=== PATIENT | male | born 1945 | race Caucasian/White ===

== ENCOUNTER 2017-06-11 12:50 | Emergency (ER) | payer OTHER ==
[~2017-06-11 12:50] MED LIST: AMLO10 PO; ASPI81 PO; HYDR50TA5 PO; POTA-243 PO; SERT100 PO; TAMS0.4C67 PO; [UNRECOGNIZED DRUG - CODE] XX
[2017-06-11 12:53] VITALS: BP 134/84; PULSE 88; RESP 20; TEMP 97.9; O2SAT 97
--- NOTE | 2017-06-11 13:11 | PD ---
Physical Exam Time Seen by Provider: 13:09 Narrative 72 y/o male here with dizziness, nausea for one week. Vital signs reviewed. Seen at triage desk. Awaiting bed placement. Data Data Last Documented VS Vital Signs Date Time Temp Pulse Resp B/P Pulse Ox O2 Delivery O2 Flow Rate FiO2 06/11/17 12:53 97.9 88 20 134/84 97 Room Air [facility] Medical Record Reviewed: Yes Supervised Visit with BHAVESH: No Jaime Vera Jun 11, 2017 13:11
[2017-06-11] MEDS ORDERED: B-122000 PO (16:01)
[2017-06-11] MEDS ORDERED: LOSA50TA PO (16:01)
[2017-06-11] MEDS ORDERED: AMLO10TA2 PO (16:01)
[2017-06-11] MEDS ORDERED: WARF-23 PO (16:01)
[2017-06-11] MEDS ORDERED: POTA10TA2 PO (16:01)
[2017-06-11] MEDS ORDERED: TERA1CAP3 PO (16:01)
[2017-06-11] MEDS ORDERED: CYAN100025 SL (16:01)
[2017-06-11] MEDS ORDERED: DOCU100C PO (16:01)
[2017-06-11] MEDS ORDERED: ASPI325T PO (16:01)
[2017-06-11] MEDS ORDERED: ATOR1TAB18 PO (16:01)
[2017-06-11] MEDS ORDERED: AMIO200T PO (16:01)
[2017-06-11] MEDS ORDERED: B-12100T PO (16:01)
--- NOTE | 2017-06-11 16:06 | PD ---
HPI Chief Complaint: Medical Clearance Time Seen by Provider: 16:06 Travel History International Travel<30 days: No Contact w/Intl Traveler<30days: No Traveled to known affect area: No History of Present Illness HPI 72-year-old male with a history of hypertension, atrial fibrillation anticoagulated on warfarin presents to the emergency department for evaluation of headache and abdominal pain for 3 months. The patient states that every morning after he takes his medications he begins to have a headache on the top of his head and has periumbilical abdominal pain. States that when he wakes up in the morning he doesn't have these symptoms, they began after he takes his medication. States that the headache is described as a pressure. States that it persists throughout the day and waxes and wanes in severity. States that he also has mild abdominal discomfort throughout the day that is alleviated with eating. At that by the time his headache and abdominal pain starts to feel better is time for his evening meds and his symptoms return. States that when he goes to sleep these symptoms do not wake him up, he is able to sleep without difficulty. He denies any lightheadedness, dizziness, nausea, vomiting, diarrhea, fever, chills, vision changes, numbness or tingling, weakness. PCP is at [facility]. No other complaints. PFSH Past Medical History Arthritis: Yes (UNDER CONTROL) Anxiety: Yes Depression: No Heart Rhythm Problems: Yes (BRADYCARDIA) Cancer: No Cardiovascular Problems: Yes High Cholesterol: No Chest Pain: No Congestive Heart Failure: No Diabetes: No Endocrine: No Gastrointestinal Disorders: Yes GERD: No Genitourinary: Yes Hiatal Hernia: Yes Hypertension: Yes Immune Disorder: No Kidney Stones: No Musculoskeletal: Yes Neurologic: No Psychiatric: Yes (PTSD) Reproductive: No Respiratory: No Renal Failure: No Ulcer: No Tetanus Vaccination: > 5 Years Influenza Vaccination: Yes Past Surgical History Abdominal Surgery: Yes (CHOLECYSTECTOMY) Cardiac Surgery: No Cholecystectomy: Yes Ear Surgery: No Endocrine Surgery: No Eye Surgery: No Genitourinary Surgery: No Gynecologic Surgery: No Oral Surgery: Yes (TOOTH REMOVAL) Thoracic Surgery: No Tonsillectomy: Yes Other Surgery: Yes Social History Alcohol Use: Yes (ONCE A MONTH) Tobacco Use: No (QUIT 10 YRS AGO.) Substance Use: No Allergies-Medications (Allergen,Severity, Reaction): Coded Allergies: No Known Allergies (Verified , 06/11/17) Reported Meds & Prescriptions Reported Meds & Active Scripts Active Reported B-12 (Cyanocobalamin) 2,000 Mcg Tab 1,000 Mcg PO DAILY Warfarin 5 Mg Tab 5 Mg PO DAILY Terazosin (Terazosin HCl) 1 Mg Cap 1 Mg PO HS Potassium Chloride ER (Potassium Chloride) 10 Meq Tab 10 Meq PO BID Losartan (Losartan Potassium) 50 Mg Tab 50 Mg PO DAILY Docusate Sodium 100 Mg Cap 100 Mg PO BID Atorvastatin (Atorvastatin Calcium) 80 Mg Tab 80 Mg PO HS Aspirin 325 Mg Tab 325 Mg PO DAILY Amlodipine (Amlodipine Besylate) 10 Mg Tab 10 Mg PO DAILY Amiodarone (Amiodarone HCl) 200 Mg Tab 200 Mg PO DAILY Review of Systems Except as stated in HPI: all other systems reviewed are Neg Physical Exam Narrative GENERAL: Well-nourished and well-developed pleasant male patient in no acute distress who is nontoxic appearing. SKIN: Warm and dry. HEAD: Normocephalic and atraumatic. EYES: No injection, drainage, or hyphema noted. PERRLA. EOMI. ENT: No nasal drainage noted. Oropharynx is clear. NECK: Supple and the trachea is midline. CARDIOVASCULAR: Regular rate and rhythm. RESPIRATORY: Breath sounds are equal bilaterally with no accessory muscle use, wheezing, rhonchi, or crackles. GASTROINTESTINAL: Abdomen is soft, non-tender, and nondistended. No rebound tenderness or guarding. MUSCULOSKELETAL: No obvious deformities, swelling, cyanosis, or ecchymosis is present throughout the upper and lower extremities. Patient has full range of motion without any signs of neurovascular compromise. Strength 5/5 upper and lower extremities and equal bilaterally. NEUROLOGICAL: Awake, alert, and oriented. Normal speech and gait. Cranial nerves are grossly intact. Data Data Last Documented VS Vital Signs Date Time Temp Pulse Resp B/P Pulse Ox O2 Delivery O2 Flow Rate FiO2 06/11/17 15:55 80 18 06/11/17 12:53 97.9 134/[address] Brain W/O Iv Contrast(Rout) (06/11/17 16:05) Complete Blood Count With Diff (06/11/17 16:05) Comprehensive Metabolic Panel (06/11/17 16:05) Lipase (06/11/17 16:05) Prothrombin Time / Inr (Pt) (06/11/17 16:05) Act Partial Throm Time (Ptt) (06/11/17 16:05) Urinalysis - C+S If Indicated (06/11/17 16:05) Iv Access Insert/Monitor (06/11/17 16:05) Ecg Monitoring (06/11/17 16:05) Oximetry (06/11/17 16:05) Labs Laboratory Tests Test 06/11/17 06/11/17 16:11 17:30 White Blood Count 9.6 TH/MM3 Red Blood Count 4.43 MIL/MM3 Hemoglobin 13.3 GM/DL Hematocrit 39.2 % Mean Corpuscular Volume 88.6 FL Mean Corpuscular Hemoglobin 30.1 PG Mean Corpuscular Hemoglobin 33.9 % Concent Red Cell Distribution Width 17.5 % Platelet Count 337 TH/MM3 Mean Platelet Volume 7.7 FL Neutrophils (%) (Auto) 82.8 % Lymphocytes (%) (Auto) 10.6 % Monocytes (%) (Auto) 6.2 % Eosinophils (%) (Auto) 0.1 % Basophils (%) (Auto) 0.3 % Neutrophils # (Auto) 8.0 TH/MM3 Lymphocytes # (Auto) 1.0 TH/MM3 Monocytes # (Auto) 0.6 TH/MM3 Eosinophils # (Auto) 0.0 TH/MM3 Basophils # (Auto) 0.0 TH/MM3 CBC Comment DIFF FINAL Differential Comment Prothrombin Time 18.5 SEC Prothromb Time International 1.6 RATIO Ratio Activated Partial 29.4 SEC Thromboplast Time Sodium Level 140 MEQ/L Potassium Level 4.0 MEQ/L Chloride Level 104 MEQ/L Carbon Dioxide Level 27.3 MEQ/L Anion Gap 9 MEQ/L Blood Urea Nitrogen 10 MG/DL Creatinine 0.99 MG/DL Estimat Glomerular Filtration 75 ML/MIN Rate Random Glucose 98 MG/DL Calcium Level 9.0 MG/DL Total Bilirubin 0.9 MG/DL Aspartate Amino Transf 10 U/L (AST/SGOT) Alanine Aminotransferase 15 U/L (ALT/SGPT) Alkaline Phosphatase 82 U/L Total Protein 8.5 GM/DL Albumin 3.3 GM/DL Lipase 75 U/L Urine Color YELLOW Urine Turbidity CLEAR Urine pH 6.5 Urine Specific [place] 1.020 Urine Protein TRACE mg/dL Urine Glucose (UA) NEG mg/dL Urine Ketones NEG mg/dL Urine Occult Blood NEG Urine Nitrite NEG Urine Bilirubin NEG Urine Urobilinogen 2.0 MG/DL Urine Leukocyte Esterase NEG Urine RBC 1 /hpf Urine WBC 2 /hpf Urine Mucus MOD /lpf Microscopic Urinalysis Comment CULT NOT INDICATED MDM Medical Decision Making Medical Screen Exam Complete: Yes Emergency Medical Condition: Yes Differential Diagnosis Mild persistent headache versus tension headache versus adverse reaction of medication versus gastritis Narrative Course 72-year-old male presents to the emergency department for evaluation of headache and abdominal pain daily for the past 3 months. Patient is afebrile, vital signs are stable. Physical examination is essentially unremarkable. Abdominal examination is benign. No focal neurologic deficits. Patient states that he thinks his headache and abdominal pain is secondary to taking his medications. Because he is anticoagulated on warfarin we will do a head CT to rule out any sort of intracranial hemorrhage. We'll do lab work to rule out any acute abnormalities. If these are unremarkable the patient will need a follow-up as an outpatient with his primary care. CBC is unremarkable. CMP is unremarkable. INR is subtherapeutic at 1.6. Urinalysis shows moderate mucus. Head CT is negative for any acute abnormalities. Discussed all results with the patient. His headache may be a side effect of some of the medications he is taking, specifically the amiodarone. There is no acute abnormality or finding on lab or imaging. He is advised to follow up as an outpatient with the [facility]. Diagnosis Primary Impression: Headache Qualified Code: G44.52 - New daily persistent headache Additional Impression: Abdominal pain Qualified Code: R10.9 - Abdominal pain, unspecified location Referrals: Primary Care Physician Patient Instructions: General Headache (ED), General Instructions Additional Instructions: Take [id number] tylenol as directed on the box as needed for pain. Follow-up with your Primary Care Physician. Return to the ED for any acute worsening of symptoms. Med/Other Pt SpecificInfo: No Change to Meds Disposition: 01 DISCHARGE HOME Condition: Stable Yara Ma Jun 11, 2017 16:06
[2017-06-11 16:34] LABS: BASOPHIL % 0.3 % (0.0-2.0); EOSINOPHIL % 0.1 % (0.0-4.0); HEMATOCRIT 39.2 % (39.0-51.0); HEMO FLAGS DIFF FINAL; LYMPH % 10.6 % (9.0-44.0); MEAN CELL VOLUME 88.6 FL (80.0-100.0); MEAN CORPUSCULAR HEMOGLOBIN 30.1 PG (27.0-34.0); MEAN CORPUSCULAR HGB CONC 33.9 % (32.0-36.0); MONO % 6.2 % (0.0-8.0); NEUT % 82.8 % (16.0-70.0); PLATELET COUNT 337 TH/MM3 (150-450); RED BLOOD COUNT 4.43 MIL/MM3 (4.50-5.90); RED CELL DISTRIBUTION WIDTH 17.5 % (11.6-17.2); WHITE BLOOD COUNT 9.6 TH/MM3 (4.0-11.0)
[2017-06-11 16:49] LABS: APTT (PATIENT) 29.4 SEC (24.3-30.1); INTERNATIONAL NORMALIZED RATIO 1.6 RATIO; PROTHROMBIN TIME - PATIENT 18.5 SEC (9.8-11.6)
[2017-06-11 16:52] LABS: ALT (GPT) 15 U/L (12-78); ANION GAP 9 MEQ/L (5-15); AST (GOT) 10 U/L (15-37); BICARBONATE 27.3 MEQ/L (21.0-32.0); BLOOD UREA NITROGEN 10 MG/DL (7-18); CHLORIDE 104 MEQ/L (98-107); GLOMERULAR FILTRATION RATE 75 ML/MIN (>89); SODIUM (NA) 140 MEQ/L (136-145)
[2017-06-11 16:55] LABS: ALKALINE PHOSPHATASE 82 U/L (45-117); TOTAL BILIRUBIN ADULT 0.9 MG/DL (0.2-1.0)
[2017-06-11 18:02] LABS: BLOOD, URINE NEG (NEG); COMMENT (UR) CULT NOT INDICATED; CULTURE IF INDICATED CULT NOT INDICATED; GLUCOSE,URINE NEG (NEG); KETONE, URINE NEG (NEG); MUCUS URINE MOD /lpf (OCC); NITRITE,URINE NEG (NEG); PH, URINE 6.5 (5.0-8.5); URINE COLOR YELLOW (YELLW/STRAW)
--- NOTE | 2017-06-11 18:13 | RADRPT ---
EXAM DATE/TIME: 06/11/2017 17:45 [facility] COMPARISON: No previous studies available for comparison. INDICATIONS : Evaluate for cephalgia. RADIATION DOSE: 56.35 CTDIvol (mGy) MEDICAL HISTORY : Cardiovascular disease. SURGICAL HISTORY : Cholecystectomy. ENCOUNTER: Initial ACUITY: 1 day PAIN SCALE: 7/10 LOCATION: Bilateral cranial TECHNIQUE: Multiple contiguous axial images were obtained of the head. Using automated exposure control and adj ustment of the mA and/or kV according to patient size, radiation dose was kept as low as reasonably a chievable to obtain optimal diagnostic quality images. DICOM format image data is available electro nically for review and comparison. FINDINGS: There is no evidence for intracranial hemorrhage, mass effect, mass lesions, or edema. The visualize d bony structures appear intact. Moderate degree of brain atrophy is seen. Moderate periventricular white matter changes are seen nonspecific mostly consistent with chronic small vessel ischemic change s. There are no signs of acute infarction for technique. There is a mucous retention cyst within the left maxillary sinus. CONCLUSION: Chronic and small vessel ischemic changes without any evidence for acute hemorrhage o r mass effect. Carson Buchanan MD on June 11, 2017 at 18:09 Board Certified Radiologist. This report was verified electronically.
== END 2017-06-11 18:56 | disposition home or self-care (01) ==
LOC: NEPD 12:50
DX: G44.52 New daily persistent headache (NDPH) (principal); R10.9 Unspecified abdominal pain; I10 Essential (primary) hypertension; Z79.01 Long term (current) use of anticoagulants; Z86.79 Personal history of other diseases of the circulatory system; Z87.39 Personal history of other diseases of the musculoskeletal system and connective tissue; Z86.59 Personal history of other mental and behavioral disorders; Z87.19 Personal history of other diseases of the digestive system
CPT/HCPCS: 70450; 80053; 81001; 83690; 85025; 85610; 85730; 99284

== ENCOUNTER 2017-07-02 12:11 | Emergency (ER) | payer OTHER ==
[~2017-07-02] VITALS: Ht 185.4 cm; Wt 136.0 kg
[~2017-07-02 12:11] MED LIST changes: +AMIO200T PO; -AMLO10 PO; +AMLO10TA2 PO; +ASPI325T PO; -ASPI81 PO; +ATOR1TAB18 PO; +B-122000 PO; +DOCU100C PO; -HYDR50TA5 PO; +LOSA50TA PO; -POTA-243 PO; +POTA10TA2 PO; -SERT100 PO; -TAMS0.4C67 PO; +TERA1CAP3 PO; +WARF-23 PO; -[UNRECOGNIZED DRUG - CODE] XX
[2017-07-02 12:19] VITALS: BP 168/93; PULSE 62; RESP 20; TEMP 97.9; O2SAT 96
[2017-07-02 12:30] VITALS: BP 168/92; PULSE 68; RESP 18; TEMP 98.3; O2SAT 93
[2017-07-02] MEDS ORDERED: MORPHINE SULFATE 4 MG/ML INJ IV PUSH ONE (12:30)
[2017-07-02] MEDS ORDERED: ONDANSETRON HCL 4 MG/2 ML VIAL IV PUSH ONE (12:30)
[2017-07-02 13:06] LABS: AUTOMATED NEUTROPHIL # 9.7 TH/MM3 (1.8-7.7); BASOPHIL % 0.2 % (0.0-2.0); EOSINOPHIL % 0.1 % (0.0-4.0); HEMATOCRIT 41.7 % (39.0-51.0); HEMO FLAGS DIFF FINAL; LYMPHOCYTE # 0.7 TH/MM3 (1.0-4.8); MEAN CELL VOLUME 91.1 FL (80.0-100.0); MONO % 4.5 % (0.0-8.0); NEUT % 89.2 % (16.0-70.0); PLATELET COUNT 328 TH/MM3 (150-450); RED BLOOD COUNT 4.57 MIL/MM3 (4.50-5.90); RED CELL DISTRIBUTION WIDTH 16.2 % (11.6-17.2); WHITE BLOOD COUNT 10.9 TH/MM3 (4.0-11.0)
--- NOTE | 2017-07-02 13:16 | PD ---
HPI Chief Complaint: Pain: Acute or Chronic Time Seen by Provider: 13:09 Travel History International Travel<30 days: No Contact w/Intl Traveler<30days: No Traveled to known affect area: No History of Present Illness HPI 72-year-old male that presents to the ED for evaluation of right shoulder pain. Per patient she's had this since this morning. No injuries. He did took a tramadol today which she normally takes for chronic pain with no improvement. He denies any trauma or injury. He states that the pain is mainly to the right side of the neck and radiates to the right shoulder. No history of falls or injuries. No surgeries to the neck. He does state Coumadin. Denies any left- sided chest pain. No allergies to medication. No numbness, tingling, weakness. Per patient his pain is 8 out of 10. Gets worse with touch and movement. No cough or runny nose. Per patient she's been compliant with his medications and took all of his medications this morning. Patient comes for this via ambulance. Unrelated to the reason patient came here ambulance and ED nurse did report the patient had bedbugs on him and at the house. PFSH Past Medical History Hx Anticoagulant Therapy: Yes Arthritis: Yes (UNDER CONTROL) Anxiety: Yes Depression: No Heart Rhythm Problems: Yes (BRADYCARDIA) Cardiovascular Problems: Yes (IRREGULAR HEART RHYTHM, PACEMAKER, HTN) High Cholesterol: Yes Chest Pain: No Congestive Heart Failure: No Diabetes: No Endocrine: No Gastrointestinal Disorders: Yes GERD: No Genitourinary: Yes Hiatal Hernia: Yes Hypertension: Yes Immune Disorder: No Kidney Stones: No Musculoskeletal: Yes Neurologic: No Psychiatric: Yes (PTSD) Reproductive: No Respiratory: No Renal Failure: No Ulcer: No Tetanus Vaccination: > 5 Years Past Surgical History Abdominal Surgery: Yes (CHOLECYSTECTOMY) Cardiac Surgery: Yes (PACEMAKER INSERTION 2012 BY [employer]) Cholecystectomy: Yes Ear Surgery: No Endocrine Surgery: No Eye Surgery: No Genitourinary Surgery: No Gynecologic Surgery: No Oral Surgery: Yes (TOOTH REMOVAL) Thoracic Surgery: No Tonsillectomy: Yes Other Surgery: Yes Social History Alcohol Use: No Tobacco Use: No (QUIT 10 YRS AGO.) Substance Use: Yes (CANNABIS DAILY ) Allergies-Medications (Allergen,Severity, Reaction): Coded Allergies: No Known Allergies (Verified , 06/11/17) Reported Meds & Prescriptions Reported Meds & Active Scripts Active Lortab (Hydrocodone-Acetaminophen) 5-325 Mg Tab 1 Tab PO Q6H PRN Reported Warfarin 5 Mg Tab 5 Mg PO DAILY Terazosin (Terazosin HCl) 1 Mg Cap 1 Mg PO HS Potassium Chloride ER (Potassium Chloride) 10 Meq Tab 10 Meq PO BID Losartan (Losartan Potassium) 50 Mg Tab 50 Mg PO DAILY Docusate Sodium 100 Mg Cap 100 Mg PO BID Atorvastatin (Atorvastatin Calcium) 80 Mg Tab 80 Mg PO HS Aspirin 325 Mg Tab 325 Mg PO DAILY Amlodipine (Amlodipine Besylate) 10 Mg Tab 10 Mg PO DAILY Amiodarone (Amiodarone HCl) 200 Mg Tab 200 Mg PO DAILY Review of Systems Except as stated in HPI: all other systems reviewed are Neg Physical Exam Narrative GENERAL: SKIN: Warm and dry. Patient does have multiple bug bites all over. HEAD: Atraumatic. Normocephalic. EYES: Pupils equal and round. No scleral icterus. No injection or drainage. ENT: No nasal bleeding or discharge. Mucous membranes pink and moist. Tongue is midline. No uvula deviation. NECK: Trachea midline. No JVD. CARDIOVASCULAR: Regular rate and rhythm. No murmurs, S3, S4. RESPIRATORY: No accessory muscle use. Clear to auscultation. Breath sounds equal bilaterally. GASTROINTESTINAL: Abdomen soft, non-tender, nondistended. Hepatic and splenic margins not palpable. MUSCULOSKELETAL: Extremities without clubbing, cyanosis, or edema. No obvious deformities. Full range of motion of the upper and lower extremities bilaterally. 2+ pulses bilaterally. Some pain is reproducible with range of motion of the right shoulder especially with abduction. No lumbar, thoracic, cervical spine tenderness to palpation. No obvious deformity noted. NEUROLOGICAL: Awake and alert. No obvious cranial nerve deficits. Motor grossly within normal limits. Five out of 5 muscle strength in the arms and legs. Normal speech. PSYCHIATRIC: Appropriate mood and affect; insight and judgment normal. Data Data Last Documented VS Vital Signs Date Time Temp Pulse Resp B/P Pulse Ox O2 Delivery O2 Flow Rate FiO2 07/02/17 15:00 60 18 183/98 92 Room Air 07/02/17 12:30 98.3 Orders Electrocardiogram (07/02/17 12:25) Complete Blood Count With Diff (07/02/17 12:25) Basic Metabolic Panel (Bmp) (07/02/17 12:25) Chest, Single Ap (07/02/17 12:25) Iv Access Insert/Monitor (07/02/17 12:25) Ecg Monitoring (07/02/17 12:25) Oximetry (07/02/17 12:25) Shoulder, Complete (>2vws) (07/02/17 ) Morphine Inj (Morphine Inj) (07/02/17 12:30) Ondansetron Inj (Zofran Inj) (07/02/17 12:30) Ct Cerv Spine W/O Contrast (07/02/17 ) Troponin I (07/02/17 12:47) Ckmb (Isoenzyme) Profile (07/02/17 12:47) Oxycodone-Acetamin 5-325 Mg (Percocet (07/02/17 16:45) Labs Laboratory Tests Test 07/02/17 12:45 White Blood Count 10.9 TH/MM3 Red Blood Count 4.57 MIL/MM3 Hemoglobin 13.7 GM/DL Hematocrit 41.7 % Mean Corpuscular Volume 91.1 FL Mean Corpuscular Hemoglobin 30.0 PG Mean Corpuscular Hemoglobin 33.0 % Concent Red Cell Distribution Width 16.2 % Platelet Count 328 TH/MM3 Mean Platelet Volume 7.5 FL Neutrophils (%) (Auto) 89.2 % Lymphocytes (%) (Auto) 6.0 % Monocytes (%) (Auto) 4.5 % Eosinophils (%) (Auto) 0.1 % Basophils (%) (Auto) 0.2 % Neutrophils # (Auto) 9.7 TH/MM3 Lymphocytes # (Auto) 0.7 TH/MM3 Monocytes # (Auto) 0.5 TH/MM3 Eosinophils # (Auto) 0.0 TH/MM3 Basophils # (Auto) 0.0 TH/MM3 CBC Comment DIFF FINAL Differential Comment Sodium Level 141 MEQ/L Potassium Level 3.7 MEQ/L Chloride Level 106 MEQ/L Carbon Dioxide Level 27.4 MEQ/L Anion Gap 8 MEQ/L Blood Urea Nitrogen 18 MG/DL Creatinine 1.16 MG/DL Estimat Glomerular Filtration 62 ML/MIN Rate Random Glucose 129 MG/DL Calcium Level 8.7 MG/DL Total Creatine Kinase 26 U/L Troponin I LESS THAN 0.02 NG/ML MDM Medical Decision Making Medical Screen Exam Complete: Yes Emergency Medical Condition: Yes Medical Record Reviewed: Yes Interpretation(s) EKG showed paced rhythm but no sign of acute ischemia or arrhythmia read by me and attending. CBC & BMP Diagram 07/02/17 12:45 troponin and CKMB negative Last Impressions Chest X-Ray 07/02/17 1225 Signed Impressions: Service Date/Time: June 13:04 - CONCLUSION: Less than optimal examination secondary to rotation and technique rendering the left inferior hemithorax poorly evaluated. Excluding this area, there is atelectasis at the right lung base. Noah High MD Shoulder X-Ray 07/02/17 0000 Signed Impressions: Service Date/Time: , July 02, 2017 13:05 - CONCLUSION: No acute right shoulder abnormality is identified. There is acromioclavicular and glenohumeral joint osteoarthritis. Noah High MD Cervical Spine CT 07/02/17 0000 Signed Impressions: Service Date/Time: , July 02, 2017 14:21 - CONCLUSION: Multilevel degenerative change throughout the cervical spine, as above. There is moderate to severe bilateral neural foraminal stenosis at C6-C7 secondary to uncovertebral osteophytes. Please see above for detailed description of each level. Noah High MD Differential Diagnosis Right shoulder pain versus acute on chronic pain versus chronic pain versus muscle strain versus muscle spasm versus chest pain versus typical chest pain Narrative Course 72-year-old male that presents to the ED for evaluation of right shoulder pain. Patient was properly examined and was found to have signs and symptoms consistent with appears to be muscular skeletal pain. X-rays and imaging will be done. Labs were done as patient does complain of some chest discomfort. Therefore labs and imaging for chest discomfort will be ordered as well. Patient was given IV pain medications. Labs and imaging were essentially unremarkable. I have my attending evaluated the patient with me and recommends treatment for pain. Follow with PCP. See ED worsening symptoms. Patient agrees with this plan. Diagnosis Primary Impression: Right shoulder pain Qualified Code: M25.511 - Acute pain of right shoulder Patient Instructions: General Instructions, Narcotic given in the ED Additional Instructions: Take medications as prescribed. Follow-up with PCP. See ED for any worsening symptoms. Do not drink or drive while taking pain medication. Apply ice or heat as needed for pain Med/Other Pt SpecificInfo: Prescription(s) given Scripts Hydrocodone-Acetaminophen (Lortab)5-325 Mg Tab1 Tab PO Q6H PRN (PAIN) #7 TAB Ref 0 Prov:DicksonRosa Isela hymanshreya VALVERDE 07/02/17 Disposition: 01 DISCHARGE HOME Condition: Stable Xavier Cabrera Jul 02, 2017 13:16
[2017-07-02 13:19] LABS: BICARBONATE 27.4 MEQ/L (21.0-32.0); POTASSIUM 3.7 MEQ/L (3.5-5.1)
--- NOTE | 2017-07-02 13:30 | RADRPT ---
EXAM DATE/TIME: 07/02/2017 13:04 [facility] COMPARISON: No previous studies available for comparison. INDICATIONS : Right shoulder pain. No injury. MEDICAL HISTORY : Cardiovascular disease. SURGICAL HISTORY : Pacemaker. Cholecystectomy. ENCOUNTER: Initial ACUITY: 1 month PAIN SCORE: 7/10 LOCATION: Right chest FINDINGS: A rotated and underinflated AP view of the chest demonstrates a normal-sized cardiac silhouette with calcification of the aorta. Left chest wall cardiac pacing device is present. Increased density overl becki the left lower lung zone may be related to technique and overlying soft tissue and is not well e valuated. There is likely atelectasis at the right lung base. No pneumothorax or right effusion is id entified. Bones demonstrate no acute finding.CONCLUSION: Less than optimal examination secondary to rotation and technique rendering the left inferior hemitho rax poorly evaluated. Excluding this area, there is atelectasis at the right lung base. Noah High MD on July 02, 2017 at 13:27 Board Certified Radiologist. This report was verified electronically.
--- NOTE | 2017-07-02 13:34 | RADRPT ---
EXAM DATE/TIME: 07/02/2017 13:05 [facility] COMPARISON: No previous studies available for comparison. INDICATIONS : Right shoulder pain. No injury. MEDICAL HISTORY : Cardiovascular disease. SURGICAL HISTORY : Pacemaker. Cholecystectomy. ENCOUNTER: Initial ACUITY: 1 month PAIN SCORE: 7/10 LOCATION: Right shoulder. FINDINGS: 4 views of the right shoulder demonstrate no fracture or dislocation. The acromioclavicular joint is intact but demonstrates moderate osteoarthritis change. There is joint space narrowing at the glenohu meral joint with humeral head osteophytes. The visualized soft tissues demonstrate no abnormality. Visualized portions of the right lung are clear. No displaced rib fracture is seen. Cardiac pacing de vice is present. CONCLUSION: No acute right shoulder abnormality is identified. There is acromioclavicular and glenohumeral joint osteoarthritis. Noah High MD on July 02, 2017 at 13:31 Board Certified Radiologist. This report was verified electronically.
[2017-07-02 15:00] VITALS: BP 183/98; PULSE 60; RESP 18; O2SAT 92
[2017-07-02 15:29] LABS: CREATINE KINASE 26 U/L (39-308)
--- NOTE | 2017-07-02 15:53 | RADRPT ---
EXAM DATE/TIME: 07/02/2017 14:21 [facility] COMPARISON: No previous studies available for comparison. INDICATIONS : Woke up with right shoulder pain. RADIATION DOSE: 34.23 CTDIvol (mGy) MEDICAL HISTORY : Cardiovascular disease. Hypertension. SURGICAL HISTORY : Pacemaker. Cholecystectomy. ENCOUNTER: Initial ACUITY: 1 day PAIN SCALE: 9/10 LOCATION: neck TECHNIQUE: Volumetric scanning of the cervical spine was performed. Multiplanar reconstructions in the sagittal, coronal and oblique axial planes were performed. Using automated exposure control and adjustment o f the mA and/or kV according to patient size, radiation dose was kept as low as reasonably achievable to obtain optimal diagnostic quality images. DICOM format image data is available electronically f or review and comparison. FINDINGS: VERTEBRAE: Normal vertebral body height. No fracture is visualized. ALIGNMENT: No anterolisthesis or retrolisthesis. Craniocervical junction and C2 on C2 level demonstrate no acute finding. There is joint space narrowi ng osteophytes at the atlantodens interval. C2-C3: There is right facet arthrosis. No disc herniation, canal stenosis, or neural foraminal stenosis is p resent. C3-C4: There is right facet arthrosis. Minimal posterior disc osteophyte complex is present. There is no can al stenosis or neural foraminal narrowing. C4-C5: There is mild right facet arthrosis. No disc herniation is present. There is mild right neural forami nal narrowing. No canal stenosis or left neural foraminal narrowing is present. C5-C6: There are endplate osteophytes anteriorly with mild decreased disc height. Diffuse posterior disc ost eophyte complex is present with bilateral uncovertebral osteophytes. There is no canal stenosis. Ther e is mild neural foraminal narrowing bilaterally. C6-C7: There is decreased disc height with endplate osteophytes anteriorly and moderate diffuse posterior di sc osteophyte complex and uncovertebral osteophytes. No definite canal stenosis is visualized. There is moderate to severe bilateral neural foraminal narrowing. C7-T1: There is mild facet arthrosis bilaterally. No canal stenosis or neural foraminal narrowing is appreci ated. The visualized paraspinous structures demonstrate no acute finding. CONCLUSION: Multilevel degenerative change throughout the cervical spine, as above. There is moderate to severe b ilateral neural foraminal stenosis at C6-C7 secondary to uncovertebral osteophytes. Please see above for detailed description of each level. Noah High MD on July 02, 2017 at 15:47 Board Certified Radiologist. This report was verified electronically.
[2017-07-02] MEDS ORDERED: HYDR-3533 PO (16:39)
--- NOTE | 2017-07-02 16:39 | PD ---
Physical Exam Narrative I, Dr. Dickson, have reviewed the advance practice practitioner's documentation and am in agreement, met with the patient face to face, made the diagnosis, and the medical decision making was done by me. *My assessment and Findings: Fracture vs. sprain vs. rotator cuff tear 72yo M with right shoulder pain today. Pain is sharp, worst with movement and appears very musculoskeletal. Patient denies any chest pain to me. Denies any sob, n/v, abdominal pain, focal weakness or numbness or trauma. Labs reviewed, no leukocytosis. Troponin negative. CXR showed atelectasis at right lung base. CT cspine showed degenerative changes. Xray right shoulder showed no acute right shoulder abnormality. Osteoarthritis. Pt can follow up with orthopedic clinic if pain persists. Data Data Last Documented VS Vital Signs Date Time Temp Pulse Resp B/P Pulse Ox O2 Delivery O2 Flow Rate FiO2 07/02/17 15:00 60 18 183/98 92 Room Air 07/02/17 12:30 98.3 Orders Electrocardiogram (07/02/17 12:25) Complete Blood Count With Diff (07/02/17 12:25) Basic Metabolic Panel (Bmp) (07/02/17 12:25) Chest, Single Ap (07/02/17 12:25) Iv Access Insert/Monitor (07/02/17 12:25) Ecg Monitoring (07/02/17 12:25) Oximetry (07/02/17 12:25) Shoulder, Complete (>2vws) (07/02/17 ) Morphine Inj (Morphine Inj) (07/02/17 12:30) Ondansetron Inj (Zofran Inj) (07/02/17 12:30) Ct Cerv Spine W/O Contrast (07/02/17 ) Troponin I (07/02/17 12:47) Ckmb (Isoenzyme) Profile (07/02/17 12:47) Labs Laboratory Tests Test 07/02/17 12:45 White Blood Count 10.9 TH/MM3 Red Blood Count 4.57 MIL/MM3 Hemoglobin 13.7 GM/DL Hematocrit 41.7 % Mean Corpuscular Volume 91.1 FL Mean Corpuscular Hemoglobin 30.0 PG Mean Corpuscular Hemoglobin 33.0 % Concent Red Cell Distribution Width 16.2 % Platelet Count 328 TH/MM3 Mean Platelet Volume 7.5 FL Neutrophils (%) (Auto) 89.2 % Lymphocytes (%) (Auto) 6.0 % Monocytes (%) (Auto) 4.5 % Eosinophils (%) (Auto) 0.1 % Basophils (%) (Auto) 0.2 % Neutrophils # (Auto) 9.7 TH/MM3 Lymphocytes # (Auto) 0.7 TH/MM3 Monocytes # (Auto) 0.5 TH/MM3 Eosinophils # (Auto) 0.0 TH/MM3 Basophils # (Auto) 0.0 TH/MM3 CBC Comment DIFF FINAL Differential Comment Sodium Level 141 MEQ/L Potassium Level 3.7 MEQ/L Chloride Level 106 MEQ/L Carbon Dioxide Level 27.4 MEQ/L Anion Gap 8 MEQ/L Blood Urea Nitrogen 18 MG/DL Creatinine 1.16 MG/DL Estimat Glomerular Filtration 62 ML/MIN Rate Random Glucose 129 MG/DL Calcium Level 8.7 MG/DL Total Creatine Kinase 26 U/L Troponin I LESS THAN 0.02 NG/ML MDM Supervised Visit with BHAVESH: Yes Diagnosis Primary Impression: Right shoulder pain Qualified Code: M25.511 - Acute pain of right shoulder Referrals: Grayson Jackson Jr., MD as needed Please follow up with orthopedic surgery if pain persists. Patient Instructions: General Instructions Departure Forms: Tests/Procedures Additional Instruction: Please follow up with your PMD or orthopedic clinic if your pain persists for further evaluation of right shoulder pain. Return to the ED if symptoms worsen. Med/Other Pt SpecificInfo: Prescription(s) given Scripts Hydrocodone-Acetaminophen (Lortab)5-325 Mg Tab1 Tab PO Q6H PRN (PAIN) #7 TAB Ref 0 Prov:YessiMadison DO 07/02/17 Disposition: 01 DISCHARGE HOME Condition: Stable Madison Dickson DO Jul 02, 2017 16:39
[2017-07-02] MEDS ORDERED: oxyCODONE/ACETAMINOPHEN 5 MG/325 MG TAB PO ONE (16:45)
--- NOTE | 2017-07-03 12:10 | EKG ---
Date Performed: 07/02/2017 Time Performed: 12:36:09 PTAGE: 72 years EKG: ELECTRONIC VENTRICULAR PACEMAKER ABNORMAL RHYTHM ECG PREVIOUS TRACING : 02/18/2011 05.02 Compared to the prior study, pacer rhythm has overridden at rial fibrillation with slow response. DOCTOR: Darrick Green Interpretating Date/Time 07/03/2017 12:08:26
== END 2017-07-02 17:16 | disposition home or self-care (01) ==
LOC: NEPD 12:11
DX: M25.511 Pain in right shoulder (principal); R07.89 Other chest pain; I10 Essential (primary) hypertension; F43.10 Post-traumatic stress disorder, unspecified; E78.00 Pure hypercholesterolemia, unspecified; Z95.0 Presence of cardiac pacemaker; Z90.49 Acquired absence of other specified parts of digestive tract; F12.10 Cannabis abuse, uncomplicated
CPT/HCPCS: 71010; 72125; 73030; 80048; 82550; 84484; 85025; 93005; 96374; 96375; 99285; J2270; J2405

== ENCOUNTER 2017-07-04 20:47 | Emergency (ER) | payer OTHER ==
[~2017-07-04 20:47] MED LIST changes: -B-122000 PO; +HYDR-3533 PO
[2017-07-04 20:50] VITALS: BP 134/85; PULSE 68; RESP 16; TEMP 97.8; O2SAT 98
[2017-07-04 23:33] VITALS: BP 124/59; PULSE 63; RESP 20; O2SAT 97
[2017-07-04] MEDS ORDERED: NORC5TAB PO (23:52)
--- NOTE | 2017-07-04 23:53 | PD ---
HPI Chief Complaint: Back/ Neck Pain or Injury Time Seen by Provider: 23:44 Travel History International Travel<30 days: No Contact w/Intl Traveler<30days: No Traveled to known affect area: No History of Present Illness HPI Patient is a 72-year-old male who presents emergency department with neck pain. Patient has had pain in the right side of the neck that radiates into the trapezius and down into the right shoulder. This has been present chronically but has been acutely worse over the course of the last week. He denies any injury. Patient was seen here in our emergency department recently and had CT and x-ray imaging of the neck, shoulder, chest that showed degenerative changes but no acute abnormalities. Patient was given a small prescription for Aroma [place] which he states helped. He has since run out of this. [facility] and [facility] get [facility] prior to this weekend prompting repeat ER visit. Pain is moderate, constant, worse with shoulder movement. No chest pain. PFSH Past Medical History Hx Anticoagulant Therapy: Yes Arthritis: Yes Anxiety: Yes Depression: No Heart Rhythm Problems: Yes (BRADYCARDIA) Cardiovascular Problems: Yes (IRREGULAR HEART RHYTHM, PACEMAKER, HTN) High Cholesterol: Yes Chest Pain: No Congestive Heart Failure: No Diabetes: No Diminished Hearing: No Endocrine: No Gastrointestinal Disorders: Yes GERD: No Genitourinary: Yes Hiatal Hernia: Yes Hypertension: Yes Immune Disorder: No Kidney Stones: No Musculoskeletal: Yes Neurologic: No Psychiatric: Yes (PTSD) Reproductive: No Respiratory: No Renal Failure: No Ulcer: No Influenza Vaccination: No Past Surgical History Abdominal Surgery: Yes (CHOLECYSTECTOMY) Cardiac Surgery: Yes (PACEMAKER INSERTION 2012 BY [employer]) Cholecystectomy: Yes Ear Surgery: No Endocrine Surgery: No Eye Surgery: No Genitourinary Surgery: No Gynecologic Surgery: No Oral Surgery: Yes (TOOTH REMOVAL) Thoracic Surgery: No Tonsillectomy: Yes Other Surgery: Yes (umbelical hernia repair) Social History Alcohol Use: No Tobacco Use: No (QUIT 10 YRS AGO.) Substance Use: Yes (CANNABIS DAILY ) Allergies-Medications (Allergen,Severity, Reaction): Coded Allergies: No Known Allergies (Verified , 06/11/17) Reported Meds & Prescriptions Reported Meds & Active Scripts Active Aroma [place] (Hydrocodone-Acetaminophen) 5-325 mg Tab 1-2 Tab PO Q6H PRN Lortab (Hydrocodone-Acetaminophen) 5-325 Mg Tab 1 Tab PO Q6H PRN Reported Warfarin 5 Mg Tab 5 Mg PO DAILY Terazosin (Terazosin HCl) 1 Mg Cap 1 Mg PO HS Potassium Chloride ER (Potassium Chloride) 10 Meq Tab 10 Meq PO BID Losartan (Losartan Potassium) 50 Mg Tab 50 Mg PO DAILY Docusate Sodium 100 Mg Cap 100 Mg PO BID Atorvastatin (Atorvastatin Calcium) 80 Mg Tab 80 Mg PO HS Aspirin 325 Mg Tab 325 Mg PO DAILY Amlodipine (Amlodipine Besylate) 10 Mg Tab 10 Mg PO DAILY Amiodarone (Amiodarone HCl) 200 Mg Tab 200 Mg PO DAILY Review of Systems Except as stated in HPI: all other systems reviewed are Neg Physical Exam Narrative GENERAL: Disheveled malodorous elderly male in no acute distress SKIN: Focused skin assessment warm/dry. HEAD: Normocephalic. EYES: No scleral icterus. No injection or drainage. ENT: Mucous membranes pink and moist. Significant halitosis NECK: Supple without midline tenderness to palpation. Patient has tenderness to palpation without palpable spasm of the right trapezius muscle that extends down into the right shoulder. CARDIOVASCULAR: Regular rate and rhythm. RESPIRATORY: No accessory muscle use. GASTROINTESTINAL: Obese MUSCULOSKELETAL: Passive and active range of motion of the right shoulder reproduces pain. Strength however is grossly intact. Distal sensation and pulses intact without deformity. NEUROLOGICAL: Awake and alert. Normal speech. PSYCHIATRIC: Appropriate mood and affect; insight and judgment normal. Data Data Last Documented VS Vital Signs Date Time Temp Pulse Resp B/P Pulse Ox O2 Delivery O2 Flow Rate FiO2 07/04/17 23:33 63 20 124/59 97 Room Air 07/04/17 20:50 97.8 Orders Acetamin-Hydrocod 325-5 Mg ([place] 5-325 (07/05/17 00:00) [facility] Medical Decision Making Medical Screen Exam Complete: Yes Emergency Medical Condition: Yes Differential Diagnosis 72-year-old male with neck pain. Differential includes cervical fracture, dislocation, strain, trapezius spasm, rotator cuff injury. Narrative Course Patient has had recent imaging of the cervical spine, shoulder and chest that were unremarkable except for degenerative changes. The symptoms are chronic in nature, and only worse acutely. We will give him a small prescription for Aroma [place] to essentially to get him through the weekend. He was instructed that he needs to follow-up with his primary for further narcotic pain management and he will not get any more narcotics from the emergency department. Diagnosis Primary Impression: Cervical strain Qualified Code: S16.1XXA - Strain of neck muscle, initial encounter Additional Impression: Trapezius muscle spasm Referrals: Primary Care Physician call for appointment Additional Instructions: Follow-up with primary care provider. Repeat prescriptions for narcotics will not be administered in the emergency department. You need to follow-up with primary care provider, sports medicine, pain management for this. I suggest you follow up and establish care with physical therapy as this will likely help symptoms as well. Chiropractic Medicine is also a consideration. Med/Other Pt SpecificInfo: Prescription(s) given Scripts Hydrocodone-Acetaminophen (Aroma [place])5-325 mg Tab1-2 Tab PO Q6H PRN (PAIN) #20 TAB Ref 0 Prov:Jesenia Hernandez MD 07/04/17 Disposition: 01 DISCHARGE HOME Condition: Stable Jesenia Hernandez MD Jul 04, 2017 23:53
[2017-07-05] MEDS ORDERED: ACETAMINOPHEN/HYDROcodone 325 MG/5 MG TAB PO ONE
== END 2017-07-05 00:16 | disposition home or self-care (01) ==
LOC: NEPE 20:47
DX: S16.1XXA Strain of muscle, fascia and tendon at neck level, initial encounter (principal); M62.838 Other muscle spasm; I10 Essential (primary) hypertension; E78.00 Pure hypercholesterolemia, unspecified; X58.XXXA Exposure to other specified factors, initial encounter; Z79.01 Long term (current) use of anticoagulants; Z87.39 Personal history of other diseases of the musculoskeletal system and connective tissue; Z86.59 Personal history of other mental and behavioral disorders; Z86.79 Personal history of other diseases of the circulatory system; Z87.19 Personal history of other diseases of the digestive system; Z87.448 Personal history of other diseases of urinary system
CPT/HCPCS: 99283

== ENCOUNTER 2018-03-25 16:36 | Emergency (ER) | payer OTHER ==
[~2018-03-25 16:36] MED LIST changes: +ASPI-183 PO; -ASPI325T PO; -ATOR1TAB18 PO; +ATOR80TA45 PO; -DOCU100C PO; +DOCU100C15 PO; +NORC5TAB PO
[2018-03-25 16:41] VITALS: BP 202/96; PULSE 50; RESP 20; TEMP 97.6; O2SAT 99
[2018-03-25] MEDS ORDERED: METO25TA3 PO (18:35)
[2018-03-25] MEDS ORDERED: VENL37.5 PO (18:35)
[2018-03-25 18:58] VITALS: BP 190/91; PULSE 50; RESP 18; O2SAT 98
[2018-03-25] MEDS ORDERED: SODIUM CHLORIDE 0.9% FLUSH 10 ML FLUSH IV FLUSH PRN (19:30)
[2018-03-25 19:43] LABS: AUTOMATED NEUTROPHIL # 7.1 TH/MM3 (1.8-7.7); BASOPHIL % 0.3 % (0.0-2.0); EOSINOPHIL # 0.1 TH/MM3 (0-0.4); EOSINOPHIL % 0.8 % (0.0-4.0); HEMATOCRIT 41.1 % (39.0-51.0); HEMOGLOBIN 14.1 GM/DL (13.0-17.0); LYMPH % 15.2 % (9.0-44.0); LYMPHOCYTE # 1.4 TH/MM3 (1.0-4.8); MEAN CORPUSCULAR HGB CONC 34.4 % (32.0-36.0); MEAN PLATELET VOLUME 8.2 FL (7.0-11.0); MONO % 7.2 % (0.0-8.0); MONOCYTE # 0.7 TH/MM3 (0-0.9); NEUT % 76.5 % (16.0-70.0); PLATELET COUNT 263 TH/MM3 (150-450); RED BLOOD COUNT 4.41 MIL/MM3 (4.50-5.90); RED CELL DISTRIBUTION WIDTH 13.3 % (11.6-17.2); WHITE BLOOD COUNT 9.3 TH/MM3 (4.0-11.0)
[2018-03-25 19:51] LABS: INTERNATIONAL NORMALIZED RATIO 2.2 RATIO; PROTHROMBIN TIME - PATIENT 22.7 SEC (9.8-11.6)
--- NOTE | 2018-03-25 19:57 | RADRPT ---
EXAM DATE/TIME: 03/25/2018 19:33 [facility] COMPARISON: CHEST SINGLE AP, July 02, 2017, 13:04. INDICATIONS : Syncope MEDICAL HISTORY : Venous insufficiency. Cardiovascular disease. Hypertension SURGICAL HISTORY : Pacemaker. Cholecystectomy ENCOUNTER: Initial ACUITY: 2 weeks PAIN SCORE: 0/10 LOCATION: Bilateral chest FINDINGS: Left base consolidation and small effusion. Potentially a tiny effusion on the right as well. There i s no pneumothorax. Mild cardiomegaly similar to before. Cardiac pacer present. Mild to moderate S-shaped scoliosis of the spine. CONCLUSION: Left greater than right pleural effusions. Associated left base consolidation. Noah Barrow MD on March 25, 2018 at 19:53 Board Certified Radiologist. This report was verified electronically.
--- NOTE | 2018-03-25 20:05 | PD ---
HPI Chief Complaint: General Weakness Time Seen by Provider: 18:40 Travel History International Travel<30 days: No Contact w/Intl Traveler<30days: No Traveled to known affect area: No History of Present Illness HPI This is a 72-year-old male who [facility]. Patient states he just not feeling well. He states he feels funny and does not feels normal self. The chart says he was sent here for headache. Patient does state that he has a headache. He also states that he is just having funny sensations in his body. Patient does report that he was supposed to be taking potassium twice daily and has not been taking that for quite some time because he did not know he was out of it. There is no chest pain. There is no palpitations. He does report that he has a foul smell to his body as well that is new. There are no other complaints at the time of my examination. PFSH Past Medical History Hx Anticoagulant Therapy: Yes Arthritis: Yes Anxiety: Yes Depression: No Heart Rhythm Problems: Yes (BRADYCARDIA) Cardiovascular Problems: Yes (IRREGULAR HEART RHYTHM, PACEMAKER, HTN) High Cholesterol: Yes Chest Pain: No Congestive Heart Failure: No Diabetes: No Diminished Hearing: No Endocrine: No Gastrointestinal Disorders: Yes GERD: No Genitourinary: Yes Hiatal Hernia: Yes Hypertension: Yes Immune Disorder: No Kidney Stones: No Musculoskeletal: Yes Neurologic: No Psychiatric: Yes (PTSD) Reproductive: No Respiratory: No Renal Failure: No Ulcer: No Past Surgical History Abdominal Surgery: Yes (CHOLECYSTECTOMY) Cardiac Surgery: Yes (PACEMAKER INSERTION 2012 BY [employer]) Cholecystectomy: Yes Ear Surgery: No Endocrine Surgery: No Eye Surgery: No Genitourinary Surgery: No Gynecologic Surgery: No Oral Surgery: Yes (TOOTH REMOVAL) Thoracic Surgery: No Tonsillectomy: Yes Other Surgery: Yes (umbelical hernia repair) Social History Alcohol Use: No Tobacco Use: No (QUIT 10 YRS AGO.) Substance Use: Yes (CANNABIS DAILY ) Allergies-Medications (Allergen,Severity, Reaction): Coded Allergies: No Known Allergies (Verified , 06/11/17) Reported Meds & Prescriptions Reported Meds & Active Scripts Active Reported Metoprolol Tartrate 25 Mg Tab 25 Mg PO DAILY Effexor (Venlafaxine HCl) 37.5 Mg Tab 37.5 Mg PO Q12H Warfarin 5 Mg Tab 5 Mg PO DAILY Terazosin (Terazosin HCl) 1 Mg Cap 1 Mg PO HS Potassium Chloride ER (Potassium Chloride) 10 Meq Tab 10 Meq PO BID Losartan (Losartan Potassium) 50 Mg Tab 50 Mg PO DAILY Docusate Sodium 100 Mg Cap 100 Mg PO BID Atorvastatin (Atorvastatin Calcium) 80 Mg Tab 80 Mg PO HS Aspirin 325 Mg Tab 325 Mg PO DAILY Amlodipine (Amlodipine Besylate) 10 Mg Tab 10 Mg PO DAILY Amiodarone (Amiodarone HCl) 200 Mg Tab 200 Mg PO DAILY Review of Systems Except as stated in HPI: all other systems reviewed are Neg General / Constitutional: No: Fever, Chills HENT: Positive: Headaches, No: Lightheadedness, Neck Pain Cardiovascular: No: Chest Pain or Discomfort, Palpitations Respiratory: No: Cough, Shortness of Breath Gastrointestinal: Positive: Nausea, No: Vomiting, Abdominal Pain Genitourinary: Positive: Other (Stronger smelling urine than normal), No: Dysuria Musculoskeletal: Positive: Weakness, No: Pain Neurologic: Positive: Weakness, Headache, No: Dizziness, Change in Mentation Physical Exam Narrative GENERAL: Well-developed well-nourished male in no acute respiratory distress. SKIN: Focused skin assessment warm/dry. HEAD: Atraumatic. Normocephalic. EYES: Pupils equal and round. No scleral icterus. No injection or drainage. ENT: No nasal bleeding or discharge. Mucous membranes pink and moist. NECK: Trachea midline. No JVD. Supple. CARDIOVASCULAR: Bradycardic with paced rhythm. No obvious murmur. RESPIRATORY: No accessory muscle use. Clear to auscultation. Breath sounds equal bilaterally. Decreased respiratory effort and large habitus. GASTROINTESTINAL: Abdomen soft, non-tender, nondistended. MUSCULOSKELETAL: No obvious deformities. No clubbing. No cyanosis. 1+ edema pretibial bilaterally. NEUROLOGICAL: Awake and poor historian.. No obvious cranial nerve deficits. Motor grossly within normal limits. Normal speech. Data Data Last Documented VS Vital Signs Date Time Temp Pulse Resp B/P (MAP) Pulse Ox O2 Delivery O2 Flow Rate FiO2 03/25/18 18:58 50 18 190/91 (124) 98 Room Air 03/25/18 16:41 97.6 Orders Orders Complete Blood Count With Diff (03/25/18 19:19) Comprehensive Metabolic Panel (03/25/18 19:19) Creatine Kinase (Cpk) (03/25/18 19:19) Prothrombin Time / Inr (Pt) (03/25/18 19:19) Act Partial Throm Time (Ptt) (03/25/18 19:19) Troponin I (03/25/18 19:19) Urinalysis - C+S If Indicated (03/25/18 19:19) Chest, Single Ap (03/25/18 19:19) Ct Brain W/O Iv Contrast(Rout) (03/25/18 19:19) Blood Glucose (03/25/18 19:19) Ecg Monitoring (03/25/18 19:19) Iv Access Insert/Monitor (03/25/18 19:19) Oximetry (03/25/18 19:19) Sodium Chloride 0.9% Flush (Ns Flush) (03/25/18 19:30) Labs Laboratory Tests Test 03/25/18 19:30 White Blood Count 9.3 TH/MM3 Red Blood Count 4.41 MIL/MM3 Hemoglobin 14.1 GM/DL Hematocrit 41.1 % Mean Corpuscular Volume 93.0 FL Mean Corpuscular Hemoglobin 32.0 PG Mean Corpuscular Hemoglobin Concent 34.4 % Red Cell Distribution Width 13.3 % Platelet Count 263 TH/MM3 Mean Platelet Volume 8.2 FL Neutrophils (%) (Auto) 76.5 % Lymphocytes (%) (Auto) 15.2 % Monocytes (%) (Auto) 7.2 % Eosinophils (%) (Auto) 0.8 % Basophils (%) (Auto) 0.3 % Neutrophils # (Auto) 7.1 TH/MM3 Lymphocytes # (Auto) 1.4 TH/MM3 Monocytes # (Auto) 0.7 TH/MM3 Eosinophils # (Auto) 0.1 TH/MM3 Basophils # (Auto) 0.0 TH/MM3 CBC Comment DIFF FINAL Differential Comment Prothrombin Time 22.7 SEC Prothromb Time International Ratio 2.2 RATIO Activated Partial Thromboplast Time 32.2 SEC [facility] Medical Decision Making Medical Screen Exam Complete: Yes Emergency Medical Condition: Yes Differential Diagnosis Metabolic derangement versus sepsis versus intracranial abnormality. Narrative Course 72-year-old male presents with not feeling his normal self. Patient states she has not been taking his potassium supplementation despite being on potassium wasting diuretics. The patient has a paced rhythm which is bradycardic. Labs are pending at this time. CT and chest x-ray are pending at this time. He will be signed out to Dr. Gamez, physician replaced me at change of shift. Disposition will be per him. Diagnosis Primary Impression: Cephalgia Additional Impression: Weakness Himanshu French MD Mar 25, 2018 20:05
--- NOTE | 2018-03-25 20:20 | RADRPT ---
EXAM DATE/TIME: 03/25/2018 20:06 [facility] COMPARISON: CT BRAIN W/O CONTRAST, June 11, 2017, 17:45. INDICATIONS : Headache RADIATION DOSE: 45.47 CTDIvol (mGy) MEDICAL HISTORY : Hypertension. Cardiovascular disease SURGICAL HISTORY : None. ENCOUNTER: Initial ACUITY: 2 days PAIN SCALE: 2/10 LOCATION: cranial TECHNIQUE: Multiple contiguous axial images were obtained of the head. Using automated exposure control and adj ustment of the mA and/or kV according to patient size, radiation dose was kept as low as reasonably a chievable to obtain optimal diagnostic quality images. DICOM format image data is available electro nically for review and comparison. FINDINGS: CEREBRUM: The ventricles are normal for age. No evidence of midline shift, mass lesion, hemorrhage or acute in farction. No extra-axial fluid collections are seen. Chronic low attenuation seen in the periventric ular white matter. POSTERIOR FOSSA: The cerebellum and brainstem are intact. There is an old infarct laterally of the right cerebellar h emisphere. The 4th ventricle is midline. The cerebellopontine angle is unremarkable. EXTRACRANIAL: The visualized portion of the orbits is intact. A 1.5 cm mucous retention cyst is again seen of the l eft maxillary sinus. SKULL: The calvaria is intact. No evidence of skull fracture. CONCLUSION: 1. No acute intracranial abnormality. 2. Chronic white matter changes. 3. 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 4. 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 Noah Barrow MD on March 25, 2018 at 20:16 Board Certified Radiologist. This report was verified electronically.
[2018-03-25 20:22] LABS: ALBUMIN 3.2 GM/DL (3.4-5.0); AST (GOT) 9 U/L (15-37); BICARBONATE 25.5 MEQ/L (21.0-32.0); BLOOD UREA NITROGEN 13 MG/DL (7-18); CALCIUM 8.6 MG/DL (8.5-10.1); CHLORIDE 106 MEQ/L (98-107); GLOMERULAR FILTRATION RATE 74 ML/MIN (>89); GLUCOSE,RANDOM 88 MG/DL (74-106); SODIUM (NA) 140 MEQ/L (136-145)
[2018-03-25 20:23] LABS: ALT (GPT) 11 U/L (12-78)
[2018-03-25 20:26] LABS: ALKALINE PHOSPHATASE 78 U/L (45-117); TOTAL BILIRUBIN ADULT 0.8 MG/DL (0.2-1.0); TOTAL PROTEIN 7.5 GM/DL (6.4-8.2); TROPONIN I 0.02 NG/ML (0.02-0.05)
[2018-03-25] MEDS ORDERED: TERAZOSIN HCL 1 MG CAP PO ONE (22:15)
[2018-03-25 23:15] LABS: BACTERIA, URINE RARE /hpf; BILIRUBIN, URINE NEG (NEG); BLOOD, URINE NEG (NEG); CALCIUM OXALATE CRYSTALS,URINE OCC /hpf; GLUCOSE,URINE NEG (NEG); KETONE, URINE NEG (NEG); MUCUS URINE MANY /lpf (OCC); NITRITE,URINE NEG (NEG); PH, URINE 5.5 (5.0-8.5); URINE COLOR YELLOW (YELLW/STRAW); URINE LEUKOCYTE ESTERASE NEG (NEG)
[2018-03-25 23:50] VITALS: BP_SYST 168; BP_SYST 170; BP_SYST 174; BP_DIAS 86; BP_DIAS 88; RESP 18
--- NOTE | 2018-03-26 00:03 | PD ---
Physical Exam Date Seen by Provider: Mar 25, 2018 Time Seen by Provider: 19:30 Narrative Patient signed out to me at 7 PM I evaluated his CT his labs his urine his EKG patient is without complaint at this time he is unable to give urine known. He thinks that he is out of the medication for his prostate BPH and difficulty urinating. Patient finally is able to give a urine sample after I give him terazosin 1 mg p.o. it is negative for infection patient's orthostatics are within normal limits patient has an appointment tomorrow with his primary care doctor and he is safe for discharge home to follow-up as an outpatient Data Data Last Documented VS Vital Signs Date Time Temp Pulse Resp B/P (MAP) Pulse Ox O2 Delivery O2 Flow Rate FiO2 03/26/18 00:08 03/25/18 23:50 50 18 50 18 57 18 03/25/18 18:58 98 Room Air 03/25/18 16:41 97.6 Orders Orders Complete Blood Count With Diff (03/25/18 19:19) Comprehensive Metabolic Panel (03/25/18 19:19) Creatine Kinase (Cpk) (03/25/18 19:19) Prothrombin Time / Inr (Pt) (03/25/18 19:19) Act Partial Throm Time (Ptt) (03/25/18 19:19) Troponin I (03/25/18 19:19) Urinalysis - C+S If Indicated (03/25/18 19:19) Chest, Single Ap (03/25/18 19:19) Ct Brain W/O Iv Contrast(Rout) (03/25/18 19:19) Blood Glucose (03/25/18 19:19) Ecg Monitoring (03/25/18 19:19) Iv Access Insert/Monitor (03/25/18 19:19) Oximetry (03/25/18 19:19) Sodium Chloride 0.9% Flush (Ns Flush) (03/25/18 19:30) Electrocardiogram (03/25/18 18:56) Terazosin (Hytrin) (03/25/18 22:15) Urine Culture (03/25/18 22:50) Orthostatic Vital Signs (03/25/18 23:44) Ed Discharge Order (03/26/18 00:01) Labs Laboratory Tests Test 03/25/18 19:30 03/25/18 22:50 White Blood Count 9.3 TH/MM3 Red Blood Count 4.41 MIL/MM3 Hemoglobin 14.1 GM/DL Hematocrit 41.1 % Mean Corpuscular Volume 93.0 FL Mean Corpuscular Hemoglobin 32.0 PG Mean Corpuscular Hemoglobin Concent 34.4 % Red Cell Distribution Width 13.3 % Platelet Count 263 TH/MM3 Mean Platelet Volume 8.2 FL Neutrophils (%) (Auto) 76.5 % Lymphocytes (%) (Auto) 15.2 % Monocytes (%) (Auto) 7.2 % Eosinophils (%) (Auto) 0.8 % Basophils (%) (Auto) 0.3 % Neutrophils # (Auto) 7.1 TH/MM3 Lymphocytes # (Auto) 1.4 TH/MM3 Monocytes # (Auto) 0.7 TH/MM3 Eosinophils # (Auto) 0.1 TH/MM3 Basophils # (Auto) 0.0 TH/MM3 CBC Comment DIFF FINAL Differential Comment Prothrombin Time 22.7 SEC Prothromb Time International Ratio 2.2 RATIO Activated Partial Thromboplast Time 32.2 SEC Blood Urea Nitrogen 13 MG/DL Creatinine 1.00 MG/DL Random Glucose 88 MG/DL Total Protein 7.5 GM/DL Albumin 3.2 GM/DL Calcium Level 8.6 MG/DL Alkaline Phosphatase 78 U/L Aspartate Amino Transf (AST/SGOT) 9 U/L Alanine Aminotransferase (ALT/SGPT) 11 U/L Total Bilirubin 0.8 MG/DL Sodium Level 140 MEQ/L Potassium Level 4.0 MEQ/L Chloride Level 106 MEQ/L Carbon Dioxide Level 25.5 MEQ/L Anion Gap 9 MEQ/L Estimat Glomerular Filtration Rate 74 ML/MIN Total Creatine Kinase 38 U/L Troponin I 0.02 NG/ML Urine Color YELLOW Urine Turbidity CLEAR Urine pH 5.[address] [place] 1.024 Urine Protein TRACE mg/dL Urine Glucose (UA) NEG mg/dL Urine Ketones NEG mg/dL Urine Occult Blood NEG Urine Nitrite NEG Urine Bilirubin NEG Urine Urobilinogen LESS THAN 2.0 MG/DL Urine Leukocyte Esterase NEG Urine RBC 1 /hpf Urine WBC 2 /hpf Urine Calcium Oxalate Crystals OCC /hpf Urine Bacteria RARE /hpf Urine Mucus MANY /lpf Microscopic Urinalysis Comment CATH-CULTURE IND MDM Medical Record Reviewed: Yes Supervised Visit with BHAVESH: No Differential Diagnosis Patient is safe for discharge to follow-up as an outpatient. he agrees with follow up in AM with his PCP ( has appointment ) he has car here with him,, he feels safe to drive I order orthostatics --> were done prior to him leaving and they normal: standing, sitting, and lying,, all within the same SBP and HR Narrative Course Patient discharge follow-up as an appointment with his primary care tomorrow in the a.m. Diagnosis Primary Impression: Cephalgia Qualified Codes: R51 - Headache Additional Impression: Weakness Patient Instructions: General Instructions, Weakness (ED) Disposition: 01 DISCHARGE HOME Condition: Rolo Barnes MD Mar 26, 2018 00:03
--- NOTE | 2018-03-26 13:52 | EKG ---
Date Performed: 03/25/2018 Time Performed: 18:56:31 PTAGE: 72 years EKG: ELECTRONIC VENTRICULAR PACEMAKER ABNORMAL RHYTHM ECG PREVIOUS TRACING : 07/02/2017 12.36 Since the previous tracing, no significant change noted DOCTOR: Darrick Green Interpretating Date/Time 03/26/2018 13:48:13
== END 2018-03-26 00:30 | disposition home or self-care (01) ==
LOC: NEPE 16:36
DX: R51 Headache (principal); R53.1 Weakness; R94.31 Abnormal electrocardiogram [ECG] [EKG]; R82.99 Other abnormal findings in urine; J90 Pleural effusion, not elsewhere classified; I10 Essential (primary) hypertension; E78.00 Pure hypercholesterolemia, unspecified; F43.10 Post-traumatic stress disorder, unspecified; Z95.0 Presence of cardiac pacemaker; Z87.891 Personal history of nicotine dependence; Z79.01 Long term (current) use of anticoagulants; Z79.899 Other long term (current) drug therapy
CPT/HCPCS: 70450; 71045; 80053; 81001; 82550; 84484; 85025; 85610; 85730; 87086; 93005